=== PATIENT | female | born 1980 | race Caucasian/White ===

== ENCOUNTER 2018-04-18 16:11 | Emergency (ER) | payer OTHER ==
[2018-04-18 16:29] VITALS: BMI 21.4
[2018-04-18 16:51] VITALS: BP 124/77; PULSE 63; RESP 18; TEMP 98.2; O2SAT 99
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
--- NOTE | 2018-04-21 19:01 | CARD ---
APPROVED REPORT Date of service: 04/18/2018 EKG Measurement Heart [id number] <Conclusion> Sinus bradycardia Otherwise normal ECG
== END 2018-04-18 18:19 | disposition home or self-care (01) ==
LOC: C.ER 16:11
DX: R55 Syncope and collapse (principal); V89.0XXA Person injured in unspecified motor-vehicle accident, nontraffic, initial encounter